=== PATIENT | female | born 1985 | race Caucasian/White ===

== ENCOUNTER 2018-10-16 16:00 | Emergency (ER) | payer MEDICAID ==
[~2018-10-16] VITALS: Ht 149.9 cm; Wt 47.7 kg
[2018-10-16 16:12] VITALS: Ht 149.9 cm; Wt 47.7 kg
[2018-10-16 16:35] LABS: BASOPHILS 0.2 % (0-2); EOSINOPHILS 4.6 % (0-7); HEMATOCRIT 41.7 % (36.0-48.0); HEMOGLOBIN 14.2 g/dL (12-16); IMMATURE GRANULOCYTES 0.3 % (0-5); MCH 31.1 pg (26.0-34.0); MCHC 34.1 g/dL (31.0-37.0); MCV 91.4 fL (80.0-100.0); MEAN PLATELET VOLUME 10.3 fL (7.4-10.4); MONOCYTES 7.9 % (2-11); PLATELET COUNT 207 10x3/uL (130-400); RBC 4.56 10x6/uL (4.00-5.40); RDW 12.9 % (11.5-14.5); WBC 9.8 10x3/uL (4.8-10.8)
[2018-10-16 16:39] LABS: APPEARANCE CLEAR (CLEAR); COLOR YELLOW (YELLOW); SPECIFIC GRAVITY 1.025 (1.005-1.020)
[2018-10-16 16:40] LABS: BACTERIA FEW /hpf (NONE SEEN); BILIRUBIN NEGATIVE (NEGATIVE); EPITHELIAL CELLS 0-5 /hpf (0-5); GLUCOSE NEGATIVE (NEGATIVE); KETONE NEGATIVE (NEGATIVE); NITRITE POSITIVE (NEGATIVE); PROTEIN TRACE mg/dL (NEGATIVE); RED CELLS - URINE 0-5 /hpf (0-5); UROBILINOGEN NORMAL (NORMAL); WHITE CELLS - URINE 0-5 /hpf (0-5)
[2018-10-16 16:41] LABS: HCG URINE POSITIVE (NEGATIVE)
[2018-10-16 19:17] VITALS: BP 114/67
== END 2018-10-16 19:17 | disposition home or self-care (01) ==
LOC: D.ER 16:00
PROVIDERS: Family Medicine
DX: O20.8 Other hemorrhage in early pregnancy (principal); Z3A.13 13 weeks gestation of pregnancy

== ENCOUNTER 2018-11-20 20:12 | Emergency (ER) | payer MEDICAID ==
[~2018-11-20] VITALS: Ht 149.9 cm; Wt 50.0 kg
[2018-11-20 20:18] VITALS: Ht 149.9 cm; Wt 50.0 kg
[2018-11-20 20:45] LABS: BASOPHILS 0.3 % (0-2); EOSINOPHILS 5.7 % (0-7); HEMATOCRIT 35.6 % (36.0-48.0); HEMOGLOBIN 12.2 g/dL (12-16); IMMATURE GRANULOCYTES 0.4 % (0-5); LYMPHOCYTES 11.9 % (15-50); MCH 31.2 pg (26.0-34.0); MCHC 34.3 g/dL (31.0-37.0); MEAN PLATELET VOLUME 9.9 fL (7.4-10.4); MONOCYTES 7.4 % (2-11); NEUTROPHILS 74.3 % (40-80); PLATELET COUNT 222 10x3/uL (130-400); RBC 3.91 10x6/uL (4.00-5.40); RDW 13.1 % (11.5-14.5); WBC 12.2 10x3/uL (4.8-10.8)
[2018-11-20 20:53] LABS: APPEARANCE CLEAR (CLEAR); BILIRUBIN NEGATIVE (NEGATIVE); COLOR YELLOW (YELLOW); EPITHELIAL CELLS 0-5 /hpf (0-5); GLUCOSE NEGATIVE (NEGATIVE); KETONE NEGATIVE (NEGATIVE); NITRITE NEGATIVE (NEGATIVE); PROTEIN NEGATIVE (NEGATIVE); UROBILINOGEN NORMAL (NORMAL)
[2018-11-20 20:54] LABS: HCG SERUM POSITIVE (NEGATIVE)
[2018-11-20 21:03] LABS: ALBUMIN 2.8 g/dL (3.4-5.0); ALKALINE PHOSPHATASE 51 U/L (46-116); ALT (SGPT) 19 U/L (10-68); BILIRUBIN - TOTAL 0.12 mg/dL (0.2-1.3); CALC OSMOLALITY 272 mosm/kg (275-300); CALCIUM 8.9 mg/dL (8.5-10.1); CARBON DIOXIDE 23.7 mmol/L (21.0-32.0); CHLORIDE - SERUM 105 mmol/L (98-107); CREATININE - SERUM 0.6 mg/dL (0.6-1.3); GLUCOSE 88 mg/dL (74-106); POTASSIUM - SERUM 3.3 mmol/L (3.5-5.1); PROTEIN - SERUM 6.4 g/dL (6.4-8.2); SODIUM 137 mmol/L (136-145); UREA NITROGEN 12 mg/dL (7-18); eGFR NON AFRICAN AMERICAN > 90 mL/min (90-120)
[2018-11-20 21:31] LABS: HCG - QUANTITATIVE (MATERNAL) 21987 mIU/mL
[2018-11-20] MEDS ORDERED: MACROBID100 MG PO (21:37)
[2018-11-20 21:46] VITALS: BP 124/70
== END 2018-11-20 21:46 | disposition home or self-care (01) ==
LOC: D.ER 20:12
PROVIDERS: Family Medicine
DX: O23.42 Unspecified infection of urinary tract in pregnancy, second trimester (principal); Z3A.17 17 weeks gestation of pregnancy; O20.0 Threatened abortion

== ENCOUNTER 2018-12-01 09:07 | Emergency (ER) | payer MEDICAID ==
[~2018-12-01] VITALS: Ht 149.9 cm; Wt 47.7 kg
[~2018-12-01 09:07] MED LIST: MACROBID100 MG PO
[2018-12-01 09:11] VITALS: Ht 149.9 cm; Wt 47.7 kg
[2018-12-01 10:15] VITALS: BP 106/70
== END 2018-12-01 10:16 | disposition home or self-care (01) ==
LOC: D.ER 09:07
DX: A54.9 Gonococcal infection, unspecified (principal)

== ENCOUNTER 2019-04-19 01:58 | Inpatient (IN) | payer MEDICAID ==
[~2019-04-19] VITALS: Ht 149.9 cm; Wt 54.9 kg
[2019-04-19 02:56] LABS: HEMATOCRIT 34.5 % (36.0-48.0); HEMOGLOBIN 11.2 g/dL (12-16); MCHC 32.5 g/dL (31.0-37.0); MCV 89.4 fL (80.0-100.0); MEAN PLATELET VOLUME 12.2 fL (7.4-10.4); RBC 3.86 10x6/uL (4.00-5.40); RDW 13.2 % (11.5-14.5); WBC 19.6 10x3/uL (4.8-10.8)
[2019-04-19 03:31] LABS: UDS - AMPHET POSITIVE QUAL (NEGATIVE); UDS - BARB NEGATIVE QUAL (NEGATIVE); UDS - BENZO NEGATIVE QUAL (NEGATIVE); UDS - COCAINE NEGATIVE QUAL (NEGATIVE); UDS - OPIATE NEGATIVE QUAL (NEGATIVE); UDS - PCP NEGATIVE QUAL (NEGATIVE); UDS - THC NEGATIVE QUAL (NEGATIVE)
--- NOTE | 2019-04-19 07:08 | NUR ---
Called to room. pt in bathroom and requesting kristina pads. Pads and mesh briefs provided. Chux changed at this time. Pt denies pain at this time.
--- NOTE | 2019-04-19 07:29 | NUR ---
lab called about pending type and rh.
--- NOTE | 2019-04-19 08:00 | NUR ---
AM ASSESSMENT COMPLETED CHARTED ON FLOWSHEET. PT RATES PAIN/CRAMPING AT 3/10, WHITE BOARD UPDATED TO SHOW WHEN PAIN MED COULD BE ASKED FOR AGAIN. FUNDUS FIRM AT U/2 WITH SCANT BLEEDING NOTED TO KRYSTAL PAD. QUESTIONS ANSWERED ABOUT WHEN SHE COULD SHOWER AND IF SHE WAS ABLE TO AMB OFF UNIT AND OUTSIDE. EXPLAINED TO PT THAT THIS WAS A NON-SMOKING FACILTIY AND SHE WAS ALLOWED TO WALK OUTSIDE BUT DISCOURAGED HER FROM SMOKING. NICOTINE PATCH OFFERED AND SHE IS AGREEABLE.
--- NOTE | 2019-04-19 10:30 | NUR ---
attempt to transfer pt to post bed but she is sleeping at this time, in nursery.
[2019-04-19 11:14] VITALS: BP 108/60; Ht 149.9 cm; Wt 54.9 kg
--- NOTE | 2019-04-19 11:45 | NUR ---
transferred to room 1274. [place] to room, pt denies questions or concerns at this time. towels placed in bathroom as requested.
--- NOTE | 2019-04-19 12:16 | NUR ---
pt in shower at this time.
--- NOTE | 2019-04-19 13:09 | NUR ---
pt sitting up in bed eating lunch, in crib at bedside. denies pain or discomfort. provided with milk as requested. side rails up x 2 with phone and call light in reach.
--- NOTE | 2019-04-19 15:30 | NUR ---
LARGE CUP OF ICE WITH CRANBERRY AND APPLE JUICE MIXED. SALINE LOCK REMOVED PER PT REQUEST. ADDITIONAL KRYSTAL PADS PLACED IN BATHROOM. INFANT IN CRIB AT BEDSIDE, CALL LIGHT IN REACH.
--- NOTE | 2019-04-19 15:47 | MORECARE ---
CASE MANAGEMENT DISCHARGE SUMMARY PATIENT: DENIZ KRISHNA UNIT: [id number] ADM DATE: 04/19/19 AGE: 34 : 85 SEX: F ROOM/BED: D.1274 AUTHOR: AYAH URIOSTEGUI PHYSICIAN: REFERRING PHYSICIAN: NUPUR AMAYA MD DATE OF SERVICE: 04/19/19 Discharge Plan Patient Name: DENIZ KRISHNA Facility: [facility]:[place] : 1985 Planned Disposition: Anticipated Discharge Date: 04/21/19 Discharge Date: Expected LOS: 2 Initial Reviewer: [email or web address] Initial Review Date: 04/19/2019 Generated: 04/19/19 4:46 pm Patient Name: DENIZ KRISHNA Page [id number] at 1547 All edits/amendments must be made on the electronic document DICTATION DATE: 04/19/19 1546 CLINICAL SPECIALIST: MADIHA 04/19/19 154 RPT#: [id number] DC DATE: STATUS: ADM IN [facility] [address] [place] [address] END OF REPORT
--- NOTE | 2019-04-19 16:13 | MORECARE ---
CASE MANAGEMENT DISCHARGE SUMMARY PATIENT: LANI KRISHNA UNIT: [id number] ADM DATE: 04/19/19 AGE: 34 : 85 SEX: F ROOM/BED: D.4504 AUTHOR: GILA,DOC PHYSICIAN: REFERRING PHYSICIAN: NUPUR AMAYA MD DATE OF SERVICE: 04/19/19 Discharge Plan Patient Name: LANI KRISHNA Facility: [facility]:[place] : 1985 Planned Disposition: Anticipated Discharge Date: 04/21/19 Discharge Date: Expected LOS: 2 Initial Reviewer: [email or web address] Initial Review Date: 04/19/2019 Generated: 04/19/19 5:13 pm Comments DCP- Discharge Planning Updated by [email or web address]: Cierra Sue on 04/19/19 3:[address] Order received from DR. Amaya for scant care and positive UDS on admit. Chart reviewed: 04/19/19 urine amphetamines screen was positive. CM met with Lani Krishna age 34 to discuss scant care and amphetamines screen positive results. Lani reports she lives at [address] [place] [address] with her , Hima Jane (FAMILIA) and their 7 year old daughter. They live in the bottom level of the home. A family friend lives and her son live in the top level of the home. 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 Lani reports she does not have any other jobs and will the baby will not require childcare. FOMauricio, Hima Jane works time clock mechanic as a construction trades teacher. He has another child that is 18 who lives with his mother in [place]. Lani reports their home is a safe environment. She reports they have running city rater, their heat source is electric heaters. The furnace is currently not working but she stated they are in the process of getting it fixed. There is a cat and a dog that live in the upper level of the home that does not come down stairs. They have window units for air conditioning that Lani reports are in working condition. For the baby, Lani reports her is getting a car seat today. She is aware that the car seat will have to be in the room prior to baby being discharged. She reports she has plenty of clothes, diapers, bottles, and other essential need the baby will have. She is aware of [facility] and plans to use [facility] to get the baby's formula. She is aware she needs to buy nursey water to mix with the formula. The baby has a baby bed and her mother will be here on bringing a bassinet. She reports her works time clock mechanic and if financially able to supply for the babies needs. 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 She also reports to occasional marijuana use. She reports that she has been to drug rehab in the past when she lost her daughter r/t meth use. She stated her daughter failed a hair follicle test and they put her in foster care for a time. Lani reports she was clean for 4 years after that. She reports that [facility] made a visit in October because someone reported she was living in her car with her 7 year old. She stated this was found to not be true at that time. She reports she has smoked meth approximately 4 times during her . She uses meth mostly when she gets mad at her . The last time she used Meth was Thursday. She stated her was very upset with her for using it. She stated FAMILIA does not use meth but used marijuana occasionally. VANESSA provided her with handouts on drug abuse programs to assist her. She accepted the information. Lani reports the baby's Needle Punch Operator will be Dr. Waite whom has already seen him. She reports she did not go to visits due to caring for her disabled sister during this . After visit with Lani, vanessa met with the nursery nurse who reported the baby's urine was also positive for meth. Last DP export: 04/19/19 2:46 p Patient Name: LANI KRISHNA Page [id number] at 1613 All edits/amendments must be made on the electronic document DICTATION DATE: 04/19/191612 LOCKSTITCH LINING SETTER: MADIHA 04/19/191612 RPT#: [id number] DC DATE: STATUS: ADM IN [facility] [address] [place] [address] END OF REPORT
--- NOTE | 2019-04-19 17:15 | NUR ---
APPLE JUICE PER REQUEST. DENIES NEEDS AT THIS TIME. RATES PAIN AT 2/10. INFANT IN ROOM, VISITING WITH FAMILY.
[2019-04-19 19:52] VITALS: BP 134/73
--- NOTE | 2019-04-19 20:30 | NUR ---
PAIN REASSESSMENT COMPLETED BY THIS RN. PT NOW RATES PAIN 3/10. PT STATED PAIN MEDICATION WAS EFFECTIVE. PT DENIES ALL OTHER NEEDS AT THIS TIME. SRUPX2, CALL LIGHT AND PHONE WITHIN REACH.
--- NOTE | 2019-04-19 20:39 | NUR ---
PM ASSESSMENT COMPLETED CHARTED ON FLOWSHEET. PT RATES PAIN AT 5/10 C/O PRESSURE WHEN AMBULATING IN PERINEAL AREA. SEE EMAR FOR PAIN DIRECTOR LIFE SALES. FUNDUS FIRM AND MIDLINE WITH SCANT AMOUNT OF BLOOD NOTED ON PERIPAD. PT DENIES CLOTS AT THIS TIME. PT ASKED ABOUT LEAVING UNIT TO SMOKE, THIS RN EXPLAINED WE ARE A NONSMOKING FACILITY AND IF SHE LEFT IT COULD LEAD TO POSSIBLE DISCHARGE. PT STATED UNDERSTANDING. DINNER TRAY NOTED AT BEDSIDE. MOM PRESENTLY HOLDING/BOTTLE FEEDING . NO DISTRESS NOTED. PT DENIES ANYOTHER NEEDS AT THIS TIME. SRUPX2, CALL LIGHT AND PHONE WITHIN REACH.
--- NOTE | 2019-04-19 21:15 | NUR ---
THIS RN ASSISTED PT FROM LABOR AND DELIVERY TO NEW ROOM ON WOMENS SERVICES. NEW ROOM AND LAYOUT OF ROOM EXPLAINED. ALL PERSONAL ITEMS ACCOUNTED FOR AND IN NEW ROOM. PT DENIES NEEDS AT THIS TIME. IN CRIB AT BEDSIDE. SRUPX2, CALL LIGHT AND PHONE WITHIN REACH
--- NOTE | 2019-04-20 00:33 | NUR ---
rounding completed by this RN. pt sleeping at this time with sleeping in crib at bedside. respirations even and unlabored, no distress noted. srupx2, call light and phone within reach.
--- NOTE | 2019-04-20 02:33 | NUR ---
rounding completed by this rn. pt sleeping in bed with sleeping in crib at bedside. respirations even and unlabored, no distress noted. srupx2, call light and phone within reach.
--- NOTE | 2019-04-20 04:08 | NUR ---
rounding completed by this rn. pt sleeping in bed. in nursery at this time. respirations even and unlabored, no distress noted. srupx2, call light and phone within reach.
--- NOTE | 2019-04-20 06:20 | NUR ---
rounding completed by this rn. pt rates pain in abdomen at 4/10. see emar for sediment remediation consultant. pt holding and feeding infant. crackers and pudding provided at pt request. pt denies all other needs at this time. srupx2, call light and phone within reach.
[2019-04-20 07:13] LABS: RAPID PLASMA REAGIN Non Reactive (Non Reactive)
[2019-04-20 07:23] LABS: BASOPHILS 0.5 % (0-2); EOSINOPHILS 3.1 % (0-7); HEMATOCRIT 31.3 % (36.0-48.0); HEMOGLOBIN 9.7 g/dL (12-16); LYMPHOCYTES 14.3 % (15-50); MCH 27.9 pg (26.0-34.0); MCV 89.9 fL (80.0-100.0); MEAN PLATELET VOLUME 12.7 fL (7.4-10.4); MONOCYTES 9.8 % (2-11); NEUTROPHILS 70.3 % (40-80); PLATELET COUNT 148 10x3/uL (130-400); RBC 3.48 10x6/uL (4.00-5.40); RDW 13.6 % (11.5-14.5)
[2019-04-20 07:30] VITALS: BP 109/72
--- NOTE | 2019-04-20 07:30 | NUR ---
ASSESSMENT PER FLOW SHEET, VS OBTAINED, FF, ML, U/2, PT REPORTS LITE BLEEDING WITH NO CLOTS, PT REPORTS FLATUS, NO BM AND VOIDING WITH NO DIFFICULTY, PT RATES CRAMPING 3-4/10, INFORMED PT THAT I WILL ADM PAIN MED WHEN DUE, PT VERBALIZES UNDERSTANDING, REQUESTED AND SERVED APLPLE/GRAPE JUICE, PT DENIES FURTHER NEEDS, IN OPEN CRIB CART AT BEDSIDE, BREAKFAST TRAY TO ROOM
[2019-04-20 07:35] LABS: WBC 14.2 10x3/uL (4.8-10.8)
--- NOTE | 2019-04-20 08:30 | NUR ---
PT SITTING UP IN BED EATING BREAKFAST, DENIES NEEDS AT THIS TIME
--- NOTE | 2019-04-20 09:05 | NUR ---
PT RESTING, AROUSES TO OPENING OF DOOR, NICODERM PATCH APPLIED PER MD ORDERS, SEE EMAR, PT DENIES NEEDS OR PAIN AT THIS TIME
--- NOTE | 2019-04-20 10:14 | NUR ---
PT RESTING WITH EYES CLOSED, RESP QUIET, NO DISTRESS NOTED, LEFT UNDISTURBED AT THIS TIME, IN OPEN CRIB CART AT BEDSIDE
[2019-04-20 11:10] LABS: RUBELLA IGG 1.68 index (Immune >0.99)
[2019-04-20 11:28] VITALS: BP 114/71
--- NOTE | 2019-04-20 11:28 | NUR ---
PT VISITING WITH FRIENDS, FEMALE FRIEND HOLDING INFANT, VS OBTAINED, INFORMATION PROVIDED TO PT REGARDING TDAP AND FLU VACCINE, PT DENIES QUESTIONS, STATES "I'M PRETTY SURE I HAVE ALREADY HAD THE TDAP, BUT I DO WANT TO GET THE FLU VACCINE", PT ALSO INFORMED OF RHOGAM, PT VERBALIZES UNDERSTANDING, DENIES NEEDS AT THIS TIME
--- NOTE | 2019-04-20 12:58 | NUR ---
PT EATING LUNCH, VISITING WITH FRIENDS, FEMALE FRIEND HOLDING , ADM TORADOL PER MD ORDERS, SEE EMAR, PT DENIES FURTHER NEEDS
--- NOTE | 2019-04-20 13:21 | NUR ---
PT CASH MANAGEMENT ASSOCIATE LIGHT, PT REQUESTED AND SERVED CUP OF ICE AND MILK, DENIES FURTHER NEEDS OR PAIN
--- NOTE | 2019-04-20 14:00 | NUR ---
PT PHYSIOLOGY TEACHER LIGHT, PT C/O "COUGHING", REQUESTING COUCH SYRUP OR DROPS, INFORMED PT THAT I WILL CONTACT DR AMAYA TO LET HIM KNOW
--- NOTE | 2019-04-20 14:08 | NUR ---
DR AMAYA NOTIFIED, REPORT OF PT'S REQUEST FOR COUGH SYRUP OR DROPS, DR AMAYA REPORTS THAT HE WILL PUT IN AN ORDER FOR COUGH SYRUP
--- NOTE | 2019-04-20 14:13 | NUR ---
PT INFORMED THAT DR AMAYA WILL PUT ORDER IN FOR COUGH SYRUP, PT VERBALIZES UNDERSTANDING
--- NOTE | 2019-04-20 15:03 | NUR ---
PT JUST FINISHED FEEDING , CHANGING DIAPER AT THIS TIME, ADM TYLENOL WITH CODEINE PER MD ORDERS, SEE EMAR, WITH JUICE, PT REQUESTED AND PROVIDED EXTRA BLANKET AND SHIRT, PT DENIES FURTHER NEEDS
--- NOTE | 2019-04-20 16:32 | NUR ---
PT LAYING IN BED, REPORTS THAT SHE IS GOING TO GET UP TO TAKE A SHOWER, PT HAS TOWELS AND WASH CLOTHS, DENIES NEEDS OR PAIN AT THIS TIME, INFANT BACK IN Y
--- NOTE | 2019-04-20 17:30 | NUR ---
PT EATING DINNER, DENIES NEEDS AT THIS TIME
--- NOTE | 2019-04-20 18:23 | NUR ---
PT SITTING UP IN BED, JUST FINISHED DINNER, ADM TORADOL AND RHOGAM PER MD ORDERS, SEE EMAR, PT REQUESTED AND PROVIDED A SHOWER CHAIR, DENIES FURTHER NEEDS
--- NOTE | 2019-04-20 19:00 | NUR ---
SHIFT REPORT TO ON COMING SHIFT
[2019-04-20 19:45] VITALS: BP 117/84
--- NOTE | 2019-04-20 19:45 | NUR ---
PM ASSESSMENT COMPLETE CHARTED ON FLOWSHEET. VSS. FUNDUS FIRM AND MIDLINE. PT REPORTS LIGHT BLEEDING WITH NO CLOTS. DENIES ISSUES WHEN VOIDING. PT RATES PAIN IN PERINEAL AREA AT A 2/10. INFANT BEING FED BY MOM AT THIS TIME. NO DISTRESS NOTED. PT DENIES ALL OTHER NEEDS AT THIS TIME. SRUPX2, CALL LIGHT AND PHONE WITHIN REACH.
--- NOTE | 2019-04-20 20:25 | NUR ---
FLU SHOT ADMIN BY THIS RN IN LEFT DELTOID. SEE EMAR.
--- NOTE | 2019-04-20 21:00 | NUR ---
PT SHOWERED SELF AND REPORTED KRYSTAL CARE PER SELF. PT DENIES PAIN AT THIS TIME AND ALL OTHER NEEDS. INFANT AT DESK WITH THIS RN.
--- NOTE | 2019-04-20 21:45 | NUR ---
PT SLURRY MIXER LIGHT FOR JUICE. THIS RN PROVIDED CRANBERRY AND APPLE JUICE. INFANT IN ROOM BEING HELD BY FAMILY MEMBER. NO DISTRESS NOTED. SRUPX2, CALL LIGHT AND PHONE WITHIN REACH.
--- NOTE | 2019-04-20 22:05 | NUR ---
ROUNDING COMPLETED BY THIS RN. PT NOT IN ROOM. FAMILY HAS INFANT AND STATED PT WALKED OUTSIDE. INFANT IN NO DISTRESS. WILL CONTINUE TO MONITOR AND ASSESS.
--- NOTE | 2019-04-20 23:04 | NUR ---
PT STORAGE BRINE WORKER LIGHT REQUESTING COUGH MEDS. SEE EMAR FOR AGENT BY THIS NURSE. PT DENIES PAIN AND ALL OTHER NEEDS AT THIS TIME. INFANT SLEEPING IN CRIB AT BEDSIDE. SRUPX2, CALL LIGHT AND PHONE WITHIN REACH.
--- NOTE | 2019-04-21 00:05 | NUR ---
ROUNDING COMPLETED BY THIS RN. PT C/O OF PERINEAL PRESSURE PAIN 08/29, SEE EMAR FOR TORADOL ADMIN. INFANT SLEEPING IN CRIB AT BEDSIDE. SRUPX2, CALL LIGHT AND PHONE WITHIN REACH.
--- NOTE | 2019-04-21 01:17 | NUR ---
ROUNDING COMPLETED BY THIS RN. PT SLEEPING IN BED WITH SLEEPING IN CRIB BY BEDSIDE. RESPIRATIONS EVEN AND UNLABORED, NO DISTRESS NOTED. SRUPX2, CALL LIGHT AND PHONE WITHIN REACH.
--- NOTE | 2019-04-21 03:20 | NUR ---
ROUNDING COMPLETED BY THIS RN. PT SLEEPING IN BED WITH SLEEPING IN CRIB BEDSIDE. RESPIRATIONS EVEN AND UNLABORED, NO DISTRESS NOTED. SRUPX2, CALL LIGHT AND PHONE WITHIN REACH.
--- NOTE | 2019-04-21 05:02 | NUR ---
ROUNDING COMPLETED BY THIS RN. PT UP IN BED FEEDING . PT DENIES ALL NEEDS AT THIS TIME. SRUPX2, CALL LIGHT AND PHONE WITHIN REACH.
--- NOTE | 2019-04-21 05:13 | NUR ---
PT C/O PRESSURE PAIN AT PERINEAL AREA 08/29, SEE EMAR FOR CRIMINAL INTELLIGENCE SPECIALIST. PT REPORTS 3 SMALL BLOOD CLOTS AFTER URINATING. CRANBERRY AND APPLE JUICE PROVIDED AT PT REQUEST. DENIES ALL OTHER NEEDS AT THIS TIME. SRUPX2, CALL LIGHT AND PHONE WITHIN REACH.
--- NOTE | 2019-04-21 07:00 | NUR ---
SBAR HANDOFF RECEIVED FROM ANDREAS MOSER. PATIENT REMAINS STABLE IN ROOM WITH NO SIGNS OF DISTRESS
[2019-04-21 08:30] VITALS: BP 95/58
--- NOTE | 2019-04-21 08:30 | NUR ---
SLEEPING. AWAKENED FOR ASSESSMENT AND VITAL SIGNS. SLEEPING IN CRIB AT BEDSIDE. VSS. NO SIGNS OR REPORTS OF DISTRESS. FUNDUS FIRM AT 1FBU WITH LIGHT RUBRA LOCHIA. PERNIEUM INTACT WITH NO SWELLING.
--- NOTE | 2019-04-21 10:30 | NUR ---
UP AND ABOUT IN ROOM CARING FOR . NO SIGNS OF DISTRESS
--- NOTE | 2019-04-21 11:25 | NUR ---
DISCHARGE INSTRUCTIONS AND INFO REVIEWED; SEE DOCUMENTS INCHART.
--- NOTE | 2019-04-21 12:40 | NUR ---
DISCHARGED PER IN STABLE CONDITION, ACCOMPANIED BY S.O. WHO IS CARRYING IN CAR SEAT.
--- NOTE | 2019-04-25 15:43 | MORECARE ---
CASE MANAGEMENT DISCHARGE SUMMARY PATIENT: LANI KRISHNA UNIT: [id number] ADM DATE: 04/19/19 AGE: 34 : 85 SEX: F ROOM/BED: D.1223 AUTHOR: AYAH URIOSTEGUI PHYSICIAN: REFERRING PHYSICIAN: NUPUR AMAYA MD DATE OF SERVICE: 04/25/19 Discharge Plan Patient Name: LANI KRISHNA Facility: [facility]:[place] : 1985 Planned Disposition: Anticipated Discharge Date: 04/21/19 Discharge Date: 04/21/2019 Expected LOS: 2 Initial Reviewer: [email or web address] Initial Review Date: 04/19/2019 Generated: 04/25/19 4:43 pm DCP- Discharge Planning Updated by [email or web address]: Cierra Sue on 04/19/19 3:[address] Order received from DR. Amaya for scant care and positive UDS on admit. Chart reviewed: 04/19/19 urine amphetamines screen was positive. CM met with Lani Krishna age 34 to discuss scant care and amphetamines screen positive results. Lani reports she lives at [address] [place] [address] with her , Hima Jane (FAMILIA) and their 7 year old daughter. They live in the bottom level of the home. A family friend lives and her son live in the top level of the home. 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 Lani reports she does not have any other jobs and will the baby will not require childcare. FOMauricio, Hima Jane works maritime officer as a construction representative. He has another child that is 18 who lives with his mother in [place]. Lani reports their home is a safe environment. She reports they have running city rater, their heat source is electric heaters. The furnace is currently not working but she stated they are in the process of getting it fixed. There is a cat and a dog that live in the upper level of the home that does not come down stairs. They have window units for air conditioning that Lani reports are in working condition. For the baby, Lani reports her is getting a car seat today. She is aware that the car seat will have to be in the room prior to baby being discharged. She reports she has plenty of clothes, diapers, bottles, and other essential need the baby will have. She is aware of [facility] and plans to use [facility] to get the baby's formula. She is aware she needs to buy nursey water to mix with the formula. The baby has a baby bed and her mother will be here on bringing a bassinet. She reports her works maritime officer and if financially able to supply for the babies needs. 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 She also reports to occasional marijuana use. She reports that she has been to drug rehab in the past when she lost her daughter r/t meth use. She stated her daughter failed a hair follicle test and they put her in foster care for a time. Lani reports she was clean for 4 years after that. She reports that [facility] made a visit in October because someone reported she was living in her car with her 7 year old. She stated this was found to not be true at that time. She reports she has smoked meth approximately 4 times during her . She uses meth mostly when she gets mad at her . The last time she used Meth was Thursday. She stated her was very upset with her for using it. She stated FAMILIA does not use meth but used marijuana occasionally. CM provided her with handouts on drug abuse programs to assist her. She accepted the information. Lani reports the baby's Subcontract Manager will be Dr. Waite whom has already seen him. She reports she did not go to visits due to caring for her disabled sister during this . After visit with Lani, ashly met with the nursery nurse who reported the baby's urine was also positive for meth. Last DP export: 04/19/19 3:13 p Patient Name: LANI KRISHNA Page [id number] at 154 All edits/amendments must be made on the electronic document DICTATION DATE: 04/25/19 1544 ELECTRICIAN POWERHOUSE: MADIHA 04/25/19 154 RPT#: [id number] DC DATE:04/21/19 STATUS: DIS IN [facility] [address] [place] [address] END OF REPORT
== END 2019-04-21 12:40 | disposition home or self-care (01) | DRG 807 ==
LOC: D.LDO 01:58 → D.LD 01:59 → D.WS 21:30
PROVIDERS: ADMIT Obstetrics & Gynecology; ATTEND Obstetrics & Gynecology
PROC: 0W8NXZZ Division of Female Perineum, External Approach (ICD-10-PCS; principal; 2019-04-19)
PROC: 10E0XZZ Delivery of Products of Conception, External Approach (ICD-10-PCS; 2019-04-19)
DX: O99.324 Drug use complicating childbirth (principal); Z37.0 Single live birth; F15.90 Other stimulant use, unspecified, uncomplicated; O99.334 Smoking (tobacco) complicating childbirth; F17.200 Nicotine dependence, unspecified, uncomplicated; Z3A.38 38 weeks gestation of pregnancy